=== PATIENT | male | born 1955 | race Two or more races ===

== ENCOUNTER 2018-08-18 03:37 | Emergency (ER) | payer OTHER ==
[~2018-08-18] VITALS: Ht 167.6 cm; Wt 86.2 kg
[~2018-08-18 03:37] MED LIST: ASPIRIN81 MG PO; ATORVASTATIN CA40 MG PO; AVAPRO150 MG PO; BRILINTA90 MG PO; BUMETANIDE0.5 MG PO; BUTALB-ACETAMI1 EAC2; Bumex PO; Coreg PO; FERRETTS325 MG; HUMALOG MIX 75/10 ML; HUMULIN 70/30 V10 ML; HYDRALAZINE HCL50 MG PO; IMDUR30 MG PO; INTESTINEX1 CA1 PO; ISOSORBIDE DINI30 MG PO; ISOSORBIDE MONO60 M1 PO; Imdur 30MG PO; Invanz IV; LANTUS SOL100 UNIT/1 SUBCUTANEO; LIPITOR20 MG PO; LIPITOR40 MG PO; Lantus 1000 U/10 ML SUBCUTANEO; Lipitor PO; Neurin-Sl Tablet Sl SL; PANTOPRAZOLE SO40 MG; PLAVIX 75MG PO; PROAIR HFA8.5 GM; PROTONIX40 MG PO; SUCRALFATE1 GM/10 ML PO; SYMBICORT 16010.2 GM; Synthroid 100MCG TABLET PO; Synthroid 112MCG TABLET PO; Synthroid 125MCG TABLET PO; TAMS0.4C PO
== END 2018-08-18 12:43 | disposition home or self-care (01) ==
LOC: ER 03:37 → CPU-OBS 03:39 → ER 03:39
DX: R07.89 Other chest pain (principal)

== ENCOUNTER 2020-02-05 12:42 | Inpatient (IN) | payer OTHER ==
[~2020-02-05] VITALS: Ht 182.9 cm; Wt 5.0 kg
[2020-02-05] MEDS ORDERED: HORIZANT600 MG (13:07)
[2020-02-05] MEDS ORDERED: HYDRALAZINE HCL25 MG (13:07)
[2020-02-05] MEDS ORDERED: PLAVIX75 MG (13:07)
[2020-02-05] MEDS ORDERED: NITROSTAT0.4 MG (13:08)
[2020-02-05] MEDS ORDERED: ASPIR 8181 MG (13:08)
[2020-02-05] MEDS ORDERED: SYNTHROID150 MCG (13:08)
[2020-02-10] MEDS ORDERED: PROAIR HFA8.5 GM (09:26)
[2020-02-10] MEDS ORDERED: CARVEDILOL12.5 M1 (09:27)
[2020-02-10] MEDS ORDERED: ISOSORBIDE MONO60 M2 (09:27)
[2020-02-10] MEDS ORDERED: ABATINEX680 MG (09:27)
[2020-02-10] MEDS ORDERED: ISOSORBIDE MONO30 M2 (09:27)
[2020-02-10] MEDS ORDERED: GABAPENTIN600 MG (09:27)
[2020-02-13] MEDS ORDERED: CLOPIDOGREL BIS75 MG PO (11:52)
[2020-02-13] MEDS ORDERED: TAMS0.4C PO (11:52)
[2020-02-13] MEDS ORDERED: ATORVASTATIN CA40 MG PO (11:53)
[2020-02-13] MEDS ORDERED: CARVEDILOL25 MG PO (11:53)
[2020-02-13] MEDS ORDERED: ISOSORBIDE MONO60 MG PO (11:54)
[2020-02-13] MEDS ORDERED: HYDRALAZINE HCL50 MG PO (11:55)
[2020-02-13] MEDS ORDERED: ASA-EC81 MG PO (11:55)
[2020-02-13] MEDS ORDERED: BUDESONIDE0.5 MG/2 M IH (11:59)
[2020-02-13] MEDS ORDERED: LEVOTHYROXINE175 MCG PO (12:00)
[2020-02-13] MEDS ORDERED: DOXAZOSIN MESYLA2 MG PO (12:04)
== END 2020-02-13 15:37 | disposition home or self-care (01) | DRG 292 ==
LOC: ER 12:42 → ICU-2 16:20 → ICU 16:20 → MEDI 02-11 19:24
PROVIDERS: ADMIT Internal Medicine; ATTEND Internal Medicine
PROC: 4A033R1 Measurement of Arterial Saturation, Peripheral, Percutaneous Approach (ICD-10-PCS; 2020-02-05)
PROC: 3E0F7GC Introduction of Other Therapeutic Substance into Respiratory Tract, Via Natural or Artificial Opening (ICD-10-PCS; 2020-02-05)
PROC: 5A09457 Assistance with Respiratory Ventilation, 24-96 Consecutive Hours, Continuous Positive Airway Pressure (ICD-10-PCS; 2020-02-05)
PROC: B246ZZZ Ultrasonography of Right and Left Heart (ICD-10-PCS; principal; 2020-02-06)
PROC: 4A12X4Z Monitoring of Cardiac Electrical Activity, External Approach (ICD-10-PCS; 2020-02-11)
DX: I11.0 Hypertensive heart disease with heart failure (principal); J81.1 Chronic pulmonary edema; E87.2 Acidosis; I25.119 Atherosclerotic heart disease of native coronary artery with unspecified angina pectoris; I50.43 Acute on chronic combined systolic (congestive) and diastolic (congestive) heart failure; N28.9 Disorder of kidney and ureter, unspecified; E11.9 Type 2 diabetes mellitus without complications; E03.8 Other specified hypothyroidism; J44.9 Chronic obstructive pulmonary disease, unspecified; Z99.81 Dependence on supplemental oxygen; Z87.891 Personal history of nicotine dependence; R09.02 Hypoxemia

== ENCOUNTER 2020-03-23 19:00 | Emergency (ER) | payer OTHER ==
[~2020-03-23] VITALS: Ht 175.3 cm; Wt 85.3 kg
[~2020-03-23 19:00] MED LIST changes: +ABATINEX680 MG; +ASA-EC81 MG PO; +ASPIR 8181 MG; +BUDESONIDE0.5 MG/2 M IH; +CARVEDILOL12.5 M1; +CARVEDILOL25 MG PO; +CLOPIDOGREL BIS75 MG PO; +DOXAZOSIN MESYLA2 MG PO; +GABAPENTIN600 MG; +HORIZANT600 MG; +HYDRALAZINE HCL25 MG; +ISOSORBIDE MONO30 M2; +ISOSORBIDE MONO60 M2; +ISOSORBIDE MONO60 MG PO; +LEVOTHYROXINE175 MCG PO; +NITROSTAT0.4 MG; +PLAVIX75 MG; +SYNTHROID150 MCG
== END 2020-03-24 10:48 | disposition home or self-care (01) ==
LOC: ER 19:00
DX: J90 Pleural effusion, not elsewhere classified (principal); J22 Unspecified acute lower respiratory infection; E11.9 Type 2 diabetes mellitus without complications; R14.0 Abdominal distension (gaseous)

== ENCOUNTER 2020-03-25 18:16 | Inpatient (IN) | payer OTHER ==
[~2020-03-25] VITALS: Ht 167.6 cm; Wt 99.8 kg
[2020-04-09] MEDS ORDERED: TAMS0.4C PO (15:22)
[2020-04-09] MEDS ORDERED: CLOPIDOGREL BIS75 MG PO (15:22)
[2020-04-09] MEDS ORDERED: LIPITOR40 MG PO (15:23)
[2020-04-09] MEDS ORDERED: ISOSORBIDE MONO30 MG PO (15:23)
[2020-04-09] MEDS ORDERED: INTEGRA F CAPS1 EACH PO (15:23)
[2020-04-09] MEDS ORDERED: ASA-EC81 MG PO (15:24)
[2020-04-09] MEDS ORDERED: CARVEDILOL25 MG PO (15:24)
[2020-04-09] MEDS ORDERED: LEVOTHYROXINE175 MCG PO (15:25)
[2020-04-09] MEDS ORDERED: NEURONTIN600 MG PO (15:25)
[2020-04-09] MEDS ORDERED: INTESTINEX680 M1 PO (15:26)
[2020-04-09] MEDS ORDERED: PROTONIX40 MG PO (15:28)
[2020-04-09] MEDS ORDERED: LASIX20 MG PO (15:34)
== END 2020-04-12 16:24 | disposition home or self-care (01) | DRG 673 ==
LOC: ER 18:16 → SEC-K 03-26 11:46 → SURH 03-26 11:46
PROVIDERS: Radiology Vascular & Interventional Radiology; ADMIT Internal Medicine; ATTEND Internal Medicine
PROC: B24BZZZ Ultrasonography of Heart with Aorta (ICD-10-PCS; 2020-03-26)
PROC: 4A033R1 Measurement of Arterial Saturation, Peripheral, Percutaneous Approach (ICD-10-PCS; 2020-03-26)
PROC: 5A09457 Assistance with Respiratory Ventilation, 24-96 Consecutive Hours, Continuous Positive Airway Pressure (ICD-10-PCS; 2020-03-26)
PROC: 4A12X4Z Monitoring of Cardiac Electrical Activity, External Approach (ICD-10-PCS; 2020-03-26)
PROC: 30233N1 Transfusion of Nonautologous Red Blood Cells into Peripheral Vein, Percutaneous Approach (ICD-10-PCS; 2020-03-28)
PROC: BB24ZZZ Computerized Tomography (CT Scan) of Bilateral Lungs (ICD-10-PCS; 2020-03-30)
PROC: 5A1D70Z Performance of Urinary Filtration, Intermittent, Less than 6 Hours Per Day (ICD-10-PCS; 2020-04-01)
PROC: 0JHD3XZ Insertion of Tunneled Vascular Access Device into Right Upper Arm Subcutaneous Tissue and Fascia, Percutaneous Approach (ICD-10-PCS; principal; 2020-04-01 16:00)
PROC: BT43ZZZ Ultrasonography of Bilateral Kidneys (ICD-10-PCS; 2020-04-06)
DX: N17.9 Acute kidney failure, unspecified (principal); I50.43 Acute on chronic combined systolic (congestive) and diastolic (congestive) heart failure; I13.0 Hypertensive heart and chronic kidney disease with heart failure and stage 1 through stage 4 chronic kidney disease, or unspecified chronic kidney disease; J90 Pleural effusion, not elsewhere classified; E87.2 Acidosis; J44.1 Chronic obstructive pulmonary disease with (acute) exacerbation; J45.31 Mild persistent asthma with (acute) exacerbation; I13.2 Hypertensive heart and chronic kidney disease with heart failure and with stage 5 chronic kidney disease, or end stage renal disease; N18.6 End stage renal disease; D69.59 Other secondary thrombocytopenia; T45.515A Adverse effect of anticoagulants, initial encounter; D63.1 Anemia in chronic kidney disease; R09.02 Hypoxemia; E11.22 Type 2 diabetes mellitus with diabetic chronic kidney disease; E11.65 Type 2 diabetes mellitus with hyperglycemia; I08.3 Combined rheumatic disorders of mitral, aortic and tricuspid valves; Z79.4 Long term (current) use of insulin; Z99.2 Dependence on renal dialysis; Z03.818 Encounter for observation for suspected exposure to other biological agents ruled out

== ENCOUNTER 2020-05-23 10:22 | Emergency (ER) | payer OTHER ==
[~2020-05-23] VITALS: Ht 167.6 cm; Wt 86.2 kg
[~2020-05-23 10:22] MED LIST changes: +INTEGRA F CAPS1 EACH PO; +INTESTINEX680 M1 PO; +ISOSORBIDE MONO30 MG PO; +LASIX20 MG PO; +NEURONTIN600 MG PO
== END 2020-05-23 22:24 | disposition home or self-care (01) ==
LOC: ER 10:22
DX: R06.02 Shortness of breath (principal); F41.8 Other specified anxiety disorders

== ENCOUNTER 2021-10-01 12:54 | Emergency (ER) | payer OTHER ==
[~2021-10-01] VITALS: Ht 167.6 cm; Wt 54.9 kg
== END 2021-10-01 17:22 | disposition home or self-care (01) ==
LOC: ER 12:54
DX: E11.22 Type 2 diabetes mellitus with diabetic chronic kidney disease (principal); I12.0 Hypertensive chronic kidney disease with stage 5 chronic kidney disease or end stage renal disease; N18.6 End stage renal disease; Z99.2 Dependence on renal dialysis; Z91.15 Patient's noncompliance with renal dialysis; Z79.4 Long term (current) use of insulin